=== PATIENT | female | born 1955 | race Caucasian/White ===

== ENCOUNTER 2017-10-02 11:37 | Emergency (ER) | payer SELFPAY ==
[2017-10-02 11:49] VITALS: O2SAT 97
[2017-10-02] MEDS ORDERED: diphenhydrAMINE HCL 50 MG/ML VIAL IV ONE (11:51)
[2017-10-02] MEDS ORDERED: methylPREDNISolone SODIUM SUC 125 MG/2 ML VIAL IV ONE (11:51)
--- NOTE | 2017-10-02 11:51 | ED.PDOC ---
History of Present Illness - General Chief Complaint: Allergic Reaction Stated Complaint: wasp sting left wrist Time Seen by Provider: 10/02/17 11:46 Source: patient Exam Limitations: no limitations - History of Present Illness Initial Comments: Avelina Calero 61 y/o female stated that she was stung by a wasp on her left wrist at home and has epipen handy and injected it on her right thigh one dose.Had been stung by wasp 2 x and second time had worse reaction and was prescribed epipen.Denies SOB, TINGLING sensation except itching where stung. Timing/Duration: 1 hour Severity: moderate Improving Factors: nothing Worsening Factors: nothing Associated Symptoms: other - itching Allergies/Adverse Reactions: Allergies Codeine Allergy (Verified 09/22/13 18:46) Home Medications: Ambulatory Orders Epinephrine [Epipen 2-Owen] 0.3 mg IM ONCE PRN #1 ml 09/22/13 Epinephrine [Epipen 2-Owen] 0.3 mg IJ ONCE #1 ml 10/02/17 predniSONE 20 mg PO DAILY 3 Days #3 tab 10/02/17 Review of Systems - Review of Systems Constitutional: States: no symptoms reported EENTM: States: no symptoms reported Respiratory: States: no symptoms reported Cardiology: States: no symptoms reported Gastrointestinal/Abdominal: States: no symptoms reported Genitourinary: States: no symptoms reported Musculoskeletal: States: no symptoms reported Skin: States: see HPI, other - itching Past Medical History (General) - Patient Medical History Hx Seizures: No Hx Stroke: No Hx of COPD: No Hx Cardiac Disorders: No Hx Congestive Heart Failure: No Hx Pacemaker: No Hx Hypertension: No Hx Thyroid Disease: No Hx Diabetes: No Hx Renal Disease: No Hx Cancer: No Hx Hepatitis C: No Surgical History: no surgical history - Vaccination History Hx Tetanus, Diphtheria Vaccination: No Hx Influenza Vaccination: No Hx Pneumococcal Vaccination: No Immunizations Up to Date: No - Social History Hx Tobacco Use: No Hx Chewing Tobacco Use: No Hx Alcohol Use: No Hx Substance Use: No Hx Substance Use Treatment: No Hx Depression: No Feels Threatened In Home Enviroment: No Feels Threatened In a Relationship: No Hx Physical Abuse: No Hx Emotional Abuse: No Hx Suspected Abuse: No - Female History Patient is a Female of Child Bearing Age (10 -59 yrs old): No Patient : No Family Medical History - Family History Mother Family History: No Known Living Status: Still Living Physical Exam - Physical Exam General Appearance: Alert, Comfortable, No apparent distress Eye Exam: bilateral normal Ears, Nose, Throat: hearing grossly normal, normal ENT inspection, normal pharynx Neck: non-tender, full range of motion, supple Respiratory: chest non-tender, lungs clear, normal breath sounds, no respiratory distress Cardiovascular/Chest: normal peripheral pulses, regular rate, rhythm, no murmur Peripheral Pulses: radial,right: 2+, radial,left: 2+ Gastrointestinal/Abdominal: normal bowel sounds, non tender, soft, no organomegaly Back Exam: normal inspection, no CVA tenderness, no vertebral tenderness Extremity: non-tender, normal inspection, no pedal edema, no calf tenderness Neurologic: alert, oriented x 3 Skin Exam: normal color, warm/dry Progress - Progress Progress: 10/02/17 11:56 Vital Signs - 8 hr 10/02/17 11:37 Temperature 97.4 F L Pulse Rate [ 77 Apical] Respiratory 18 Rate Blood Pressure 137/97 [Left Arm] O2 Sat by Pulse 97 Oximetry 10/02/17 12:28 No further adverse reaction from wasp sting felt by patient Departure - Departure Clinical Impression: Wasp sting Qualifiers: Encounter type: initial encounter Injury intent: accidental or unintentional Qualified Code(s): T63.461A - Toxic effect of venom of wasps, accidental ( unintentional), initial encounter Allergic reaction to insect sting Qualifiers: Encounter type: initial encounter Injury intent: accidental or unintentional Qualified Code(s): T63.481A - Toxic effect of venom of other arthropod, accidental (unintentional), initial encounter Time of Disposition: 12:29 Disposition: Discharge to Home or Self Care Condition: Good Departure Forms: ED Discharge - Pt. Copy, Patient Portal Self Enrollment Instructions: Insect Bites and Stings (DC) Referrals: Duy Brown MD [Primary Care Provider] - 1-2 Weeks Prescriptions: Epinephrine [Epipen 2-Owen] 0.3 mg IJ ONCE #1 ml predniSONE 20 mg PO DAILY 3 Days #3 tab Home Medications: Ambulatory Orders Epinephrine [Epipen 2-Owen] 0.3 mg IM ONCE PRN #1 ml 09/22/13 Epinephrine [Epipen 2-Owen] 0.3 mg IJ ONCE #1 ml 10/02/17 predniSONE 20 mg PO DAILY 3 Days #3 tab 10/02/17 Additional Instructions: Return to emergency room as needed
[2017-10-02] MEDS ORDERED: diphenhydrAMINE HCL 25 MG CAP PO ONE (11:53)
[2017-10-02 12:44] VITALS: BP 127/68; TEMP 98.3
== END 2017-10-02 12:55 | disposition home or self-care (01) ==
LOC: ER 11:37
DX: T63.441A Toxic effect of venom of bees, accidental (unintentional), initial encounter (principal); Y92.009 Unspecified place in unspecified non-institutional (private) residence as the place of occurrence of the external cause
CPT/HCPCS: J1200; J2930; Q0163